=== PATIENT | female | born 1950 | race Asian ===

== ENCOUNTER 2023-03-26 18:38 | Emergency (ER) | payer MEDICARE, OTHER ==
[~2023-03-26] VITALS: Ht 154.9 cm; Wt 50.0 kg
[~2023-03-26 18:38] MED LIST: NOCURR
[2023-03-26 18:58] VITALS: TEMP 98
[2023-03-26] MEDS ORDERED: SODIUM CHLORIDE 0.9% 2,000 ML IV ONE (21:15)
[2023-03-26] MEDS ORDERED: INSULIN REGULAR, HUMAN 100 UNITS/ML IVP ONE (21:15)
[2023-03-26] MEDS ORDERED: KETOROLAC TROMETHAMINE 30 MG/ML VIAL IVP ONE (21:30)
[2023-03-26] MEDS ORDERED: KETOROLAC TROMETHAMINE 15 MG/ML VIAL IVP ONE (21:45)
[2023-03-26 21:55] LABS: EOSINOPHILS % (AUTO) 3.8 % (1.0-6.0); HEMATOCRIT 36.1 % (36-46); HEMOGLOBIN 12.4 g/dL (12.0-16.0); LYMPHOCYTES # (AUTO) 1.6 K/uL (1.0-4.8); MEAN CORPUSCULAR HEMOGLOBIN 28.6 pg (26.0-34.0); MEAN CORPUSCULAR HGB CONC 34.3 G/dL (31.0-37.0); MEAN CORPUSCULAR VOLUME 83 fL (80-100); MONOCYTES # (AUTO) 0.4 K/uL (0.1-1.0); MONOCYTES % (AUTO) 7.3 % (2.0-9.0); NEUTROPHILS # (AUTO) 3.1 K/uL (1.8-7.7); NEUTROPHILS % (AUTO) 57.9 % (40.0-70.0); PLATELET COUNT (AUTO) 196 K/uL (150-450); RED BLOOD CELL COUNT(AUTO) 4.33 MIL/uL (4.00-5.20); RED CELL DISTRIBUTION WIDTH 13.3 % (11.5-14.5); WHITE BLOOD COUNT (AUTO) 5.4 K/uL (4.5-11.0)
[2023-03-26 22:08] LABS: ANION GAP 10 mmol/L (8-16); CALCIUM, TOTAL 10.2 mg/dL (8.8-10.5); CARBON DIOXIDE 24 mmol/L (22-29); CHLORIDE 97 mmol/L (98-107); CREATININE 1.31 mg/dL (0.60-1.30); GLOMERULAR FILTR. RATE CALC 40 mL/min (>60); GLUCOSE,RANDOM 323 mg/dL (70-110); POTASSIUM 4.2 mmol/L (3.5-5.1); SODIUM SERUM 131 mmol/L (136-145); UREA NITROGEN, BLOOD 36 mg/dL (7-18)
[2023-03-26 22:13] LABS: ALANINE AMINOTRANSFERASE 28 U/L (12-78); ALBUMIN 4.1 g/dL (3.4-5.0); ALKALINE PHOSPHATASE 88 U/L (46-116); ASPARTATE AMINOTRANSFERASE 18 U/L (15-37); BILIRUBIN,TOTAL 0.4 mg/dL (0.1-1.0); LIPASE 78 U/L (16-77); TOTAL PROTEIN, SERUM 7.6 g/dL (6.4-8.2); TROPONIN I-HIGH SENSITIVITY 9 ng/L (<51)
[2023-03-26 22:17] LABS: B-TYPE NATRIURETIC PEPTIDE 26 pg/mL (0-100)
[2023-03-26 22:28] LABS: ACETONE,BLOOD NEGATIVE (NEGATIVE)
[2023-03-26 22:38] LABS: LACTIC ACID 1.6 mmol/L (0.4-2.0)
[2023-03-26 23:03] LABS: APPEARANCE,URINE CLEAR (CLEAR); BILIRUBIN,URINE NEGATIVE (NEGATIVE); COLOR,URINE COLORLESS (YELLOW); GLUCOSE, URINE (UA) >=1000 mg/dL (NEGATIVE); KETONES,URINE NEGATIVE (NEGATIVE); LEUKOCYTE ESTERASE ,URINE NEGATIVE (NEGATIVE); NITRATE,URINE NEGATIVE (NEGATIVE); OCCULT BLOOD,URINE NEGATIVE (NEGATIVE); PH,URINE 5.5 (5.0-8.0); PROTEIN,URINE NEGATIVE (NEGATIVE); SPECIFIC GRAVITIY, URINE 1.013 (1.003-1.030); UROBILINOGEN,URINE <=1.0 mg/dL (<=1.0)
[2023-03-26 23:19] LABS: BACTERIA,URINE None Seen /HPF (None Seen); RBC,URINE None Seen /HPF (0-2); SQUAMOUS EPITHELIAL CELL,UR None Seen /LPF (None Seen); WBC,URINE None Seen /HPF (0-5)
[2023-03-26 23:43] LABS: COVID AG,FIA SOURCE NASAL SWAB
[2023-03-27 00:13] LABS: SARS-COV2 (COVID) ANTIGEN,FIA Negative (Negative)
[2023-03-27] MEDS ORDERED: ONDANSETRON HCL 4 MG/2 ML VIAL IVP ONE (00:30)
[2023-03-27] MEDS ORDERED: HYDROmorphone HCL 2 MG/ML SYRINGE IVP ONE (00:30)
[2023-03-27] MEDS ORDERED: PANT-31 PO (00:44)
[2023-03-27 01:19] VITALS: BP 122/87; PULSE 72; RESP 18
== END 2023-03-27 01:21 | disposition home or self-care (01) ==
LOC: EMS 18:41
DX: R10.9 Unspecified abdominal pain (principal); E11.9 Type 2 diabetes mellitus without complications; J45.909 Unspecified asthma, uncomplicated; I10 Essential (primary) hypertension; Z90.710 Acquired absence of both cervix and uterus; Z20.822 Contact with and (suspected) exposure to COVID-19
CPT/HCPCS: 99285; 74176; 96374; 71045; 96361; 96375 ×2; 87426; 80053; 81001; 82009; 83605; 83690; 83880; 84484; 85025; 87040; 36415; 93005; J1815; J1885; J7030; J1170; J2405

== ENCOUNTER 2023-12-15 09:17 | Emergency (ER) | payer MEDICARE, MEDICAID ==
[~2023-12-15] VITALS: Ht 144.8 cm; Wt 54.1 kg
[~2023-12-15 09:17] MED LIST changes: +ALBU18HF12 IH; +ATOR20TA65 PO; +CHOL500013 PO; +FLUO120C4 TP; +LISI40TA9 PO; +NATE60TA4 PO; -NOCURR; +PANT-31 PO
[2023-12-15 09:20] VITALS: BP 108/73; PULSE 87; RESP 20; TEMP 98.2; O2SAT 99
[2023-12-15] MEDS ORDERED: GLUC-252 PO (09:26)
[2023-12-15] MEDS ORDERED: GABA-529 PO (09:26)
[2023-12-15 09:35] LABS: GLUCOMETER DEV NAME(LOC) ER.7; GLUCOSE,POINT OF CARE 412 MG/DL (70-110)
[2023-12-15] MEDS: SODIUM CHLORIDE 0.9% 1,000 ML IV ONE ×2 (10:21→11:46)
[2023-12-15] MEDS: KETOROLAC TROMETHAMINE 30 MG/ML VIAL IVP ONE (10:21)
[2023-12-15 11:30] LABS: GLUCOMETER DEV NAME(LOC) ERT.6; GLUCOSE,POINT OF CARE 381 MG/DL (70-110)
[2023-12-15] MEDS: INSULIN REGULAR, HUMAN 100 UNITS/ML SQ ONE (11:45)
[2023-12-15 12:26] LABS: POTASSIUM 4.5 mmol/L (3.5-5.1)
[2023-12-15 12:27] LABS: CALCIUM, TOTAL 9.6 mg/dL (8.8-10.5); CREATININE 1.84 mg/dL (0.60-1.30)
[2023-12-15 13:01] LABS: GLUCOMETER DEV NAME(LOC) ERT.6; GLUCOSE,POINT OF CARE 283 MG/DL (70-110)
== END 2023-12-15 13:57 | disposition home or self-care (01) ==
LOC: EMS 09:20
DX: G57.93 Unspecified mononeuropathy of bilateral lower limbs (principal); E11.65 Type 2 diabetes mellitus with hyperglycemia; J45.909 Unspecified asthma, uncomplicated; I10 Essential (primary) hypertension; Z90.710 Acquired absence of both cervix and uterus; Z88.2 Allergy status to sulfonamides; Z88.8 Allergy status to other drugs, medicaments and biological substances; Z98.890 Other specified postprocedural states
CPT/HCPCS: 99283; 96374; 96361; 80048; 82962; 36415; J1815; J1885; J7030

== ENCOUNTER 2023-12-17 13:41 | Emergency (ER) | payer MEDICARE, MEDICAID ==
[~2023-12-17] VITALS: Ht 152.4 cm; Wt 59.1 kg
[~2023-12-17 13:41] MED LIST changes: -CHOL500013 PO; -FLUO120C4 TP; +GABA-529 PO; +GLUC-252 PO
[2023-12-17 13:53] VITALS: BP 124/70; PULSE 96; RESP 18; TEMP 98.3; O2SAT 98
[2023-12-17] MEDS ORDERED: PANT40TA54 PO (13:56)
[2023-12-17] MEDS ORDERED: DICL100G60 TP (13:56)
[2023-12-17] MEDS ORDERED: PIOG15TA66 PO (13:56)
[2023-12-17] MEDS ORDERED: AMOX500C2 PO (16:19)
[2023-12-17] MEDS ORDERED: CETI-450 PO (16:19)
[2023-12-17] MEDS: CETIRIZINE HCL 10 MG TABLET PO ONE (16:23)
[2023-12-17] MEDS: ACETAMINOPHEN 325 MG TABLET PO ONE (16:24)
[2023-12-17] MEDS: KETOROLAC TROMETHAMINE 30 MG/ML VIAL IM ONE (16:24)
== END 2023-12-17 17:11 | disposition home or self-care (01) ==
LOC: EMS 13:41
DX: H92.01 Otalgia, right ear (principal); J45.909 Unspecified asthma, uncomplicated; E11.9 Type 2 diabetes mellitus without complications; I10 Essential (primary) hypertension; Z90.710 Acquired absence of both cervix and uterus; Z88.2 Allergy status to sulfonamides; Z88.8 Allergy status to other drugs, medicaments and biological substances; Z98.890 Other specified postprocedural states
CPT/HCPCS: 99283; 82962; 96372; J1885